=== PATIENT | male | born 1950 | race Caucasian/White ===

== ENCOUNTER 2018-07-26 05:22 | Inpatient (IN) ==
[2018-07-26] MEDS ORDERED: ceFAZolin 2 GM Premix Inj 2 GM/50 ML PIGGYBACK IV.SIG SCH (06:00)
[2018-07-26] MEDS ORDERED: Chlorhexidine Gluconate 2% 1 Pack (2 Cloths) TOPICAL ONE (06:26)
[2018-07-26] MEDS ORDERED: Metoprolol Tartrate 25 MG Tablet PO ONE (06:26)
[2018-07-26] MEDS ORDERED: Sodium Chlor 0.9% Inj 500 ML IV.SIG SCH (07:00)
[2018-07-26] MEDS ORDERED: Heparin - SQ 10,000 UNITS/ML Vial ONE (07:03)
[2018-07-26] MEDS ORDERED: Sugammadex Inj 200 MG/2 ML Vial IV.PUSH ONE (07:15)
[2018-07-26] MEDS ORDERED: HYDROmorphone PF Inj 2 MG/ML Vial IV.PUSH PRN (09:42)
[2018-07-26] MEDS ORDERED: Naloxone Inj 0.4 MG/ML Vial IV.PUSH PRN (09:42)
[2018-07-26] MEDS ORDERED: Post-op Orders (for Pharmacy) OTHER STA (09:42)
[2018-07-26] MEDS ORDERED: HYDROmorphone PCA Inj 6 MG/30 ML PCA.VIAL PCA PRN (09:42)
[2018-07-26] MEDS ORDERED: HYDROmorphone PF Inj 1 MG/ML Ampul IV.PUSH PRN (09:42)
[2018-07-26] MEDS ORDERED: *Meperidine Inj 25 MG/ML Vial PERIprocedural Use ONLY ONE (10:08)
[2018-07-26] MEDS ORDERED: *morphine SULFATE 4 MG/ML PERIprocedure ONLY ONE (10:08)
[2018-07-26] MEDS ORDERED: Morphine Inj 4 MG/ML Vial ONE (10:09)
[2018-07-26] MEDS ORDERED: fentaNYL Citrate Inj 100 MCG/2 ML Ampul ONE (10:09)
--- NOTE | 2018-07-26 10:52 | XR ---
EXAM DATE: 07/26/2018 10:48 AM EST AGE/SEX: 67 years / Male INDICATIONS: Post central line placement. CLINICAL DATA: This is the patient's initial encounter. Patient reports that signs and symptoms have been present for 1 day and indicates a pain score of 3/10. MEDICAL/SURGICAL HISTORY: Hypertension. . COMPARISON: No prior exams available for comparison. FINDINGS: A single AP view of the chest demonstrates the lungs to be symmetrically aerated without evidence of mass, infiltrate or effusion. The cardiomediastinal contours are unremarkable. Osseous structures a re intact. There is an introducer in place via the left subclavian vein. CONCLUSION: No acute cardiopulmonary findings identified. There is an introducer sheath was entered via the left subclavian vein and the catheter tip overlies the junction of the innominate and the SVC. Electronically signed by: Stewart Whitten MD 07/26/2018 10:51 AM EST
[2018-07-26] MEDS: Sod Chloride 0.9% Inj 1,000 ML IV.CONT SCH ×2 (11:00→20:03)
[2018-07-26] MEDS ORDERED: *morphine SULFATE 10 MG/ML PERIprocedure ONLY ONE (11:10)
[2018-07-26] MEDS ORDERED: Sod Chloride 0.9% Inj 1,000 ML IV.SIG ONE (15:15)
[2018-07-26] MEDS: ceFAZolin 1 GM Premix Inj 1 GM/50 ML PIGGYBACK IV.SIG SCH ×2 (15:33→23:57)
[2018-07-27 02:25] LABS: Hematocrit 40.8 % (39.0-51.0); Hemoglobin 13.5 gm/dL (13.0-17.0); Mean Corpuscular HGB Conc 33.1 % (32.0-36.0); Mean Corpuscular Hemoglobin 31.9 pg (27.0-34.0); Mean Corpuscular Volume 96.5 fL (80.0-100.0); Mean Platelet Volume 7.6 fL (7.0-11.0); Platelet Count 205 th/mm3 (150-450); Red Blood Count 4.22 mil/mm3 (4.50-5.90); Red Cell Distribution Width 13.6 % (11.6-17.2); White Blood Count 14.8 th/mm3 (4.0-11.0)
[2018-07-27 02:48] LABS: Calcium 7.3 mg/dL (8.5-10.1); Carbon Dioxide 24.8 meq/L (21.0-32.0); Potassium 4.5 meq/L (3.5-5.1)
[2018-07-27] MEDS: Sod Chloride 0.9% Inj 1,000 ML IV.CONT SCH ×3 (02:51→17:27)
[2018-07-27 03:06] LABS: Calcium-Albumin Corrected 8.1 mg/dL (8.5-10.1)
[2018-07-27] MEDS: ceFAZolin 1 GM Premix Inj 1 GM/50 ML PIGGYBACK IV.SIG SCH (08:32)
[2018-07-27] MEDS: Heparin - SQ 10,000 UNITS/ML Vial SQ SCH ×2 (08:33→21:35)
--- NOTE | 2018-07-27 15:03 | P.PNURO ---
Subjective Patient symptoms today: Pt was seen at the bedside, sitting at the chair. BASEBALL GLOVE SHAPER pump was d/c, he does have post/op pain issues, managed by PO Percocet. Eating reg food, no issues. not ambulated yet. no flatus or BM yet. Whitaker removed about 2 hrs ago, voided once, urine is red bloody color, no pain with voiding. Voided just 50-70cc Objective Vital Signs: Vital Signs 07/26/18 15:00 07/26/18 15:31 07/26/18 16:00 Temperature 98.7 F Pulse Rate 96 H 82 Respiratory Rate 14 12 20 Blood Pressure 107/53 L Pulse Oximetry 99 97 07/26/18 17:30 07/26/18 17:52 07/26/18 17:59 Temperature Pulse Rate 79 Respiratory Rate 20 Blood Pressure 99/57 L 119/65 Pulse Oximetry 99 81 L 98 07/26/18 18:00 07/26/18 20:00 07/27/18 00:00 Temperature 98 F 98.5 F Pulse Rate 88 86 Respiratory Rate 13 15 Blood Pressure 117/65 110/57 L Pulse Oximetry 99 100 98 07/27/18 04:00 07/27/18 06:00 07/27/18 07:00 Temperature Pulse Rate 90 85 86 Respiratory Rate 15 15 17 Blood Pressure 115/61 118/58 L 116/67 Pulse Oximetry 98 98 100 07/27/18 08:00 07/27/18 09:00 07/27/18 09:12 Temperature 98.2 F Pulse Rate 91 H 90 90 Respiratory Rate 17 17 17 Blood Pressure 130/60 119/59 L 117/56 L Pulse Oximetry 99 99 98 07/27/18 10:00 07/27/18 11:00 07/27/18 12:00 Temperature Pulse Rate 90 90 83 Respiratory Rate 19 25 H 18 Blood Pressure 118/62 118/57 L 115/60 Pulse Oximetry 96 97 98 07/27/18 12:18 07/27/18 13:05 Temperature Pulse Rate 106 H Respiratory Rate 29 H Blood Pressure Pulse Oximetry 96 Intake & Output 07/26/18 07/27/18 07/27/18 18:59 06:59 18:59 Intake Total 3150 / 3150 2450 / 2450 2200 / 2200 Output Total 630 / 630 355 / 355 Balance 2520 / 2520 2095 / 2095 2200 / 2200 Weight 80 kg Intake: IV 1150 / 1150 2250 / 2250 2200 / 2200 NS Inj 1,000 ML @ 125 mls/hr IV 1999 1000 / 1000 .CONT .Q8H [facility] Rx#:[id number] Ofirmev Inj 1,000 mg In 100 ml 100 / 100 200 / 200 100 / 100 @ 400 mls/hr IV.SIG Q6H [facility] Rx# :[id number] LR 1000 mL Inj 1,000 ML @ 30 1000 / 1000 mls/hr IV.SIG .Q24H [facility] Rx#: [id number] NS Inj 1,000 ML @ Wide Open IV. 1000 / 1000 SIG .Q0M [facility] Rx#:[id number] Ancef 1 GM Premix Inj 1 gm In 50 / 50 50 / 50 50 / 50 50 ml @ 100 mls/hr IV.SIG Q8H [facility] Rx#:[id number] Oral 200 / 200 Anesthesia Amount 1999 Output: Estimated Blood Loss 100 / 100 Urine Amount (Catheter) 530 / 530 355 / 355 Indwelling Urethral Catheter 530 / 530 355 / 355 Other: # Bowel Movements 0 Result Diagrams: 07/27/18 02:14 07/27/18 02:14 Other Results: NAD RRR Clear lings Abd semi soft slightly tender and distended Incision and dressing are c/d/i Medications and IVs: Active Medications Generic Name Dose Route Start Last Admin Trade Name Freq PRN Reason Stop Dose Admin Heparin Sodium (Porcine) 5,000 units 07/27/18 09:00 07/27/18 08:33 Heparin Inj SQ Not Given Q12H [facility] Hydromorphone HCl 1 mg 07/26/18 09:42 Dilaudid Pf Inj IV.PUSH Q2H PRN PAIN SCALE 1 TO 5 Hydromorphone HCl 2 mg 07/26/18 09:42 Dilaudid Pf Inj IV.PUSH Q2H PRN PAIN SCALE 6 TO 10 Sodium Chloride 500 mls @ 30 mls/hr 07/26/18 07:00 07/26/18 06:42 Ns Inj IV.SIG Not Given .Q10H [facility] Sodium Chloride 1,000 mls @ 125 mls/hr 07/26/18 09:45 07/27/18 11:36 Ns Inj IV.CONT 125 mls/hr .Q8H [facility] Administration Naloxone HCl 0.4 mg 07/26/18 09:42 Narcan Inj IV.PUSH PRN PRN SEE LABEL COMMENTS Ondansetron HCl 4 mg 07/26/18 09:42 Zofran Inj IV.PUSH Q6H PRN NAUSEA OR VOMITING Oxycodone/Acetaminophen 2 tab 07/26/18 09:42 07/27/18 13:19 Percocet 5/325 Mg PO 2 tab Q4H PRN Administration PAIN SCALE 6 TO 10 Sodium Chloride 2 ml 07/26/18 21:00 07/27/18 08:33 Ns Flush IV.FLUSH 2 ml BID [facility] Administration Sodium Chloride 2 ml 07/26/18 09:42 Ns Flush IV.FLUSH PRN PRN FLUSH AFTER USING IV ACCESS Assessment and Plan - Plan Pt is POD31 s/p right open nephrectomy - Continue current care - Drink more fluids, observe for hematuria - OOB/ ambulate - Reg diet - DVT prophylaxis - IS use if in bed - Labs at AM If doing better tomorrow possibly d/c home Discussed Condition With: Dr Amanda COOK attending
[2018-07-28] MEDS: Sod Chloride 0.9% Inj 1,000 ML IV.CONT SCH ×3 (01:49→22:57)
[2018-07-28 05:29] LABS: Calcium 7.4 mg/dL (8.5-10.1); Carbon Dioxide 24.3 meq/L (21.0-32.0); Potassium 4.6 meq/L (3.5-5.1)
[2018-07-28 05:40] LABS: Albumin 3.2 g/dL (3.4-5.0)
[2018-07-28 06:23] LABS: Hematocrit 43.8 % (39.0-51.0); Hemoglobin 14.8 gm/dL (13.0-17.0); Mean Corpuscular HGB Conc 33.8 % (32.0-36.0); Mean Corpuscular Volume 97.7 fL (80.0-100.0); Mean Platelet Volume 7.8 fL (7.0-11.0); Platelet Count 195 th/mm3 (150-450); Red Blood Count 4.48 mil/mm3 (4.50-5.90); Red Cell Distribution Width 13.7 % (11.6-17.2); White Blood Count 17.8 th/mm3 (4.0-11.0)
[2018-07-28] MEDS: Heparin - SQ 10,000 UNITS/ML Vial SQ SCH ×2 (08:51→22:56)
--- NOTE | 2018-07-28 11:37 | P.PNURO ---
Subjective Patient symptoms today: POD#@. pt was seen at the bedside. pain is better controlled. Voiding ok, hematuria is improving. Cr is stable at 1.7. + Leukocytosis, rising a little. Tolerates diet well. Ambulates without difficulties. No BM yeat. Objective Vital Signs: Vital Signs 07/27/18 12:00 07/27/18 12:18 07/27/18 13:05 Temperature Pulse Rate 83 106 H Respiratory Rate 18 29 H Blood Pressure 115/60 Pulse Oximetry 98 96 07/27/18 13:23 07/27/18 14:00 07/27/18 15:00 Temperature Pulse Rate 106 H 101 H 90 Respiratory Rate 27 H 26 H 25 H Blood Pressure 150/75 H 157/71 H 149/74 H Pulse Oximetry 93 L 97 100 07/27/18 16:00 07/27/18 17:00 07/27/18 18:00 Temperature Pulse Rate 99 H 123 H 95 H Respiratory Rate 28 H 24 Blood Pressure 152/81 H 177/79 H 149/68 H Pulse Oximetry 98 88 L 99 07/27/18 19:00 07/27/18 19:03 07/27/18 20:00 Temperature 97.7 F Pulse Rate 119 H 121 H 101 H Respiratory Rate 33 H 30 H 26 H Blood Pressure 154/72 H 147/71 H Pulse Oximetry 96 95 99 07/27/18 20:01 07/27/18 21:00 07/27/18 22:00 Temperature Pulse Rate 104 H 114 H Respiratory Rate 21 28 H Blood Pressure 151/71 H 144/79 H Pulse Oximetry 98 100 95 07/27/18 22:56 07/27/18 23:00 07/28/18 00:00 Temperature 98.6 F Pulse Rate 104 H 101 H Respiratory Rate 23 21 18 Blood Pressure 145/77 H 129/65 Pulse Oximetry 97 99 07/28/18 01:00 07/28/18 02:00 07/28/18 03:00 Temperature Pulse Rate 100 H 100 H 102 H Respiratory Rate 17 17 18 Blood Pressure 138/66 126/70 134/73 Pulse Oximetry 98 100 98 07/28/18 04:00 07/28/18 05:00 07/28/18 06:00 Temperature 98.2 F Pulse Rate 116 H 103 H 109 H Respiratory Rate 27 H 17 20 Blood Pressure 157/81 H 148/70 H 161/82 H Pulse Oximetry 97 98 99 07/28/18 07:00 07/28/18 08:00 07/28/18 08:52 Temperature Pulse Rate 108 H 101 H 120 H Respiratory Rate 20 20 26 H Blood Pressure 145/75 H Pulse Oximetry 100 100 96 07/28/18 09:05 07/28/18 10:34 Temperature Pulse Rate Respiratory Rate 20 Blood Pressure Pulse Oximetry 96 Intake & Output 07/27/18 07/28/18 07/28/18 18:59 06:59 18:59 Intake Total 2200 / 2200 950 / 950 1000 / 1000 Balance 2200 / 2200 950 / 950 1000 / 1000 Weight 79.3 kg Intake: IV 2200 / 2200 950 / 950 1000 / 1000 NS Inj 1,000 ML @ 125 mls/hr IV 1000 / 1000 950 / 950 1000 / 1000 .CONT .Q8H [facility] Rx#:[id number] Ofirmev Inj 1,000 mg In 100 ml 100 / 100 @ 400 mls/hr IV.SIG Q6H [facility] Rx# :[id number] LR 1000 mL Inj 1,000 ML @ 30 1000 / 1000 mls/hr IV.SIG .Q24H [facility] Rx#: [id number] Ancef 1 GM Premix Inj 1 gm In 50 / 50 50 ml @ 100 mls/hr IV.SIG Q8H [facility] Rx#:[id number] Result Diagrams: 07/28/18 04:27 07/28/18 04:27 Other Results: NAD RRR Clear lings Abd semi soft slightly tender and distended Incision and dressing are c/d/i Medications and IVs: Active Medications Generic Name Dose Route Start Last Admin Trade Name Freq PRN Reason Stop Dose Admin Heparin Sodium (Porcine) 5,000 units 07/27/18 09:00 07/28/18 08:51 Heparin Inj SQ 5,000 units Q12H [facility] Administration Hydromorphone HCl 1 mg 07/26/18 09:42 Dilaudid Pf Inj IV.PUSH Q2H PRN PAIN SCALE 1 TO 5 Hydromorphone HCl 2 mg 07/26/18 09:42 Dilaudid Pf Inj IV.PUSH Q2H PRN PAIN SCALE 6 TO 10 Sodium Chloride 500 mls @ 30 mls/hr 07/26/18 07:00 07/26/18 06:42 Ns Inj IV.SIG Not Given .Q10H [facility] Sodium Chloride 1,000 mls @ 125 mls/hr 07/26/18 09:45 07/28/18 10:34 Ns Inj IV.CONT Infused .Q8H [facility] Infusion Naloxone HCl 0.4 mg 07/26/18 09:42 Narcan Inj IV.PUSH PRN PRN SEE LABEL COMMENTS Ondansetron HCl 4 mg 07/26/18 09:42 Zofran Inj IV.PUSH Q6H PRN NAUSEA OR VOMITING Oxycodone/Acetaminophen 2 tab 07/26/18 09:42 07/28/18 08:52 Percocet 5/325 Mg PO 2 tab Q4H PRN Administration PAIN SCALE 6 TO 10 Sodium Chloride 2 ml 07/26/18 21:00 07/28/18 10:34 Ns Flush IV.FLUSH Not Given BID [facility] Sodium Chloride 2 ml 07/26/18 09:42 Ns Flush IV.FLUSH PRN PRN FLUSH AFTER USING IV ACCESS Assessment and Plan - Plan Pt is POD# 2 s/p right open nephrectomy - Continue current care - Drink more fluids - OOB/ ambulate - Continue Reg diet - DVT prophylaxis - IS use if in bed - Labs at AM If doing better tomorrow possibly d/c home
--- NOTE | 2018-07-28 11:55 | P.PNURO ---
Subjective Patient symptoms today: No issues overnight. Pain well controlled. Hematuria resolved. Objective Vital Signs: Vital Signs 07/27/18 12:00 07/27/18 12:18 07/27/18 13:05 Temperature Pulse Rate 83 106 H Respiratory Rate 18 29 H Blood Pressure 115/60 Pulse Oximetry 98 96 07/27/18 13:23 07/27/18 14:00 07/27/18 15:00 Temperature Pulse Rate 106 H 101 H 90 Respiratory Rate 27 H 26 H 25 H Blood Pressure 150/75 H 157/71 H 149/74 H Pulse Oximetry 93 L 97 100 07/27/18 16:00 07/27/18 17:00 07/27/18 18:00 Temperature Pulse Rate 99 H 123 H 95 H Respiratory Rate 28 H 24 Blood Pressure 152/81 H 177/79 H 149/68 H Pulse Oximetry 98 88 L 99 07/27/18 19:00 07/27/18 19:03 07/27/18 20:00 Temperature 97.7 F Pulse Rate 119 H 121 H 101 H Respiratory Rate 33 H 30 H 26 H Blood Pressure 154/72 H 147/71 H Pulse Oximetry 96 95 99 07/27/18 20:01 07/27/18 21:00 07/27/18 22:00 Temperature Pulse Rate 104 H 114 H Respiratory Rate 21 28 H Blood Pressure 151/71 H 144/79 H Pulse Oximetry 98 100 95 07/27/18 22:56 07/27/18 23:00 07/28/18 00:00 Temperature 98.6 F Pulse Rate 104 H 101 H Respiratory Rate 23 21 18 Blood Pressure 145/77 H 129/65 Pulse Oximetry 97 99 07/28/18 01:00 07/28/18 02:00 07/28/18 03:00 Temperature Pulse Rate 100 H 100 H 102 H Respiratory Rate 17 17 18 Blood Pressure 138/66 126/70 134/73 Pulse Oximetry 98 100 98 07/28/18 04:00 07/28/18 05:00 07/28/18 06:00 Temperature 98.2 F Pulse Rate 116 H 103 H 109 H Respiratory Rate 27 H 17 20 Blood Pressure 157/81 H 148/70 H 161/82 H Pulse Oximetry 97 98 99 07/28/18 07:00 07/28/18 08:00 07/28/18 08:52 Temperature Pulse Rate 108 H 101 H 120 H Respiratory Rate 20 20 26 H Blood Pressure 145/75 H Pulse Oximetry 100 100 96 07/28/18 09:05 07/28/18 10:34 Temperature Pulse Rate Respiratory Rate 20 Blood Pressure Pulse Oximetry 96 Intake & Output 07/27/18 07/28/18 07/28/18 18:59 06:59 18:59 Intake Total 2200 / 2200 950 / 950 1000 / 1000 Balance 2200 / 2200 950 / 950 1000 / 1000 Weight 79.3 kg Intake: IV 2200 / 2200 950 / 950 1000 / 1000 NS Inj 1,000 ML @ 125 mls/hr IV 1000 / 1000 950 / 950 1000 / 1000 .CONT .Q8H [facility] Rx#:[id number] Ofirmev Inj 1,000 mg In 100 ml 100 / 100 @ 400 mls/hr IV.SIG Q6H [facility] Rx# :[id number] LR 1000 mL Inj 1,000 ML @ 30 1000 / 1000 mls/hr IV.SIG .Q24H [facility] Rx#: [id number] Ancef 1 GM Premix Inj 1 gm In 50 / 50 50 ml @ 100 mls/hr IV.SIG Q8H [facility] Rx#:[id number] Result Diagrams: 07/28/18 04:27 07/28/18 04:27 Other Results: Incision healing well, no evidence of infection. Medications and IVs: Active Medications Generic Name Dose Route Start Last Admin Trade Name Freq PRN Reason Stop Dose Admin Heparin Sodium (Porcine) 5,000 units 07/27/18 09:00 07/28/18 08:51 Heparin Inj SQ 5,000 units Q12H [facility] Administration Hydromorphone HCl 1 mg 07/26/18 09:42 Dilaudid Pf Inj IV.PUSH Q2H PRN PAIN SCALE 1 TO 5 Hydromorphone HCl 2 mg 07/26/18 09:42 Dilaudid Pf Inj IV.PUSH Q2H PRN PAIN SCALE 6 TO 10 Sodium Chloride 500 mls @ 30 mls/hr 07/26/18 07:00 07/26/18 06:42 Ns Inj IV.SIG Not Given .Q10H [facility] Sodium Chloride 1,000 mls @ 125 mls/hr 07/26/18 09:45 07/28/18 10:34 Ns Inj IV.CONT Infused .Q8H [facility] Infusion Naloxone HCl 0.4 mg 07/26/18 09:42 Narcan Inj IV.PUSH PRN PRN SEE LABEL COMMENTS Ondansetron HCl 4 mg 07/26/18 09:42 Zofran Inj IV.PUSH Q6H PRN NAUSEA OR VOMITING Oxycodone/Acetaminophen 2 tab 07/26/18 09:42 07/28/18 08:52 Percocet 5/325 Mg PO 2 tab Q4H PRN Administration PAIN SCALE 6 TO 10 Sodium Chloride 2 ml 07/26/18 21:00 07/28/18 10:34 Ns Flush IV.FLUSH Not Given BID [facility] Sodium Chloride 2 ml 07/26/18 09:42 Ns Flush IV.FLUSH PRN PRN FLUSH AFTER USING IV ACCESS Assessment and Plan - Plan POD#3 Right radical nephrectomy -Pain well controlled -regular diet -Ambulate -WBC elevated, Cr stable. Continue to monitor -Potential discharge tomorrow
[2018-07-29 06:22] LABS: Hematocrit 41.6 % (39.0-51.0); Hemoglobin 14.2 gm/dL (13.0-17.0); Mean Corpuscular HGB Conc 34.3 % (32.0-36.0); Mean Corpuscular Hemoglobin 32.7 pg (27.0-34.0); Mean Corpuscular Volume 95.4 fL (80.0-100.0); Platelet Count 247 th/mm3 (150-450); Red Blood Count 4.36 mil/mm3 (4.50-5.90); Red Cell Distribution Width 13.4 % (11.6-17.2); White Blood Count 15.6 th/mm3 (4.0-11.0)
[2018-07-29 07:05] LABS: Calcium 8.6 mg/dL (8.5-10.1); Carbon Dioxide 27.5 meq/L (21.0-32.0)
[2018-07-29] MEDS: Sod Chloride 0.9% Inj 1,000 ML IV.CONT SCH ×2 (08:28→09:56)
[2018-07-29 08:49] VITALS: BP 172/78; PULSE 90; RESP 18; TEMP 99; O2SAT 97
[2018-07-29] MEDS: Heparin - SQ 10,000 UNITS/ML Vial SQ SCH (09:51)
--- NOTE | 2018-08-23 08:18 | MR ---
cc: Amaury Patel MD DATE: 07/26/2018 PREOPERATIVE DIAGNOSIS: Right renal mass. POSTOPERATIVE DIAGNOSIS: Right renal mass. SURGEON: Amaury Patel MD. PASSENGER LOCOMOTIVE ENGINEER SURGEON: Raymond Luciano MD. PERTINENT FINDINGS: 1. Large right posterior renal mass close to the renal hilum. 2. Successful removal of the entire kidney. No other abnormalities. 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 The size was close to 6 cm; and therefore, it was elected to undergo a right open radical nephrectomy. PROCEDURE IN DETAIL: After proper informed consent was obtained, the patient was brought to the operating room and placed supine on the table. Bilateral lower extremity SCDs were in place. The patient was placed in supine position with a mild flexion to the bed. All pressure points were ensured to be padded. The patient was then placed under general anesthesia. After a proper timeout was completed, the patient was prepped and draped in standard surgical fashion. After a proper timeout was completed, a right subcostal incision was made. Sharp dissection was carried down into the abdominal cavity. Upon entering, the liver was identified and the white line of Toldt was taken down. This reflected the right colon and the duodenum was encountered adjacent to the kidney. This was also reflected medially. At this point, the kidney within Gerota fascia was identified. Dissection was then carried down carefully to maintain Gerota fascia intact. Dissection was carried laterally initially and then posteriorly and worked our way inferiorly. The ureter was encountered and clipped and divided. Working further medially, the renal hilum was encountered. After careful dissection, a staple was applied across the renal vein and another across the renal artery. No evidence of bleeding was identified at this point. Therefore, continued dissection was carried out superiorly; and the adrenal gland was identified. This was from the kidney and carefully dissected off the kidney in order to preserve the adrenal gland in place. After adequate dissection, the upper pole of the kidney was freed and the kidney was then removed from the body. The nephrectomy bed was dry with no evidence of other abnormalities. Alissa was then applied to the floor of the renal bed with irrigation applied prior. At this point, the intestines were then replaced into the abdomen in proper anatomic position. The fascia was then closed in 2 layers. Skin was stapled closed. The patient was then awoken from anesthesia and taken to PACU in stable condition after proper dressings were applied. The patient tolerated the procedure well with no complications. All instrument and lap counts were correct at the end of the procedure. DISPOSITION: The patient is to be admitted with postoperative care. MD CLAIRE Boyer/ebony , 07:52 AM , 08:02 AM
== END 2018-07-29 13:20 | disposition home or self-care (01) ==
LOC: HSDI 05:22 → N03 17:48 → N06 07-28 14:19
PROVIDERS: ADMIT Urology; ATTEND Urology